=== PATIENT | male | born 1995 | race Caucasian/White ===

== ENCOUNTER 2025-05-18 15:07 | Outpatient (CLI) | payer OTHER, SELFPAY ==
--- NOTE | 2025-05-18 15:16 | XR_ITS ---
WS: [id number] XR foot RT min 3V* [id number] REASON FOR EXAM: M25.371 - Other instability, right ankle FINDINGS: No fracture or focal bone lesion. No bone erosion or periosteal reaction. Joint spaces of the forefoot are intact and well preserved. The joint spaces of the midfoot and the subtalar joint are intact and well preserved. XR/XR foot RT min 3V* [id number] IMPRESSION: No significant abnormality.
== END 2025-05-18 15:08 | disposition home or self-care (01) ==
PROVIDERS: PCP Nurse Practitioner Family; Visit Provider Nurse Practitioner Family
DX: M25.371 Other instability, right ankle (principal)
CPT/HCPCS: 73630